=== PATIENT | male | born 1940 | race Caucasian/White ===

== ENCOUNTER 2022-03-06 11:28 | Inpatient (IN) ==
[2022-03-06] MEDS ORDERED: methylPREDNISolone SOD SUC 125 MG/2 ML VIAL IV STA (13:47)
[2022-03-06] MEDS ORDERED: ALBUTEROL NEB SOLN 5 MG/ML 20 ML/BOTTLE CONT NEB SCH (14:00)
[2022-03-06 14:20] LABS: Arterial Base Excess iSTAT -5 MMOL/L (-2.5-2.5); Arterial Bicarbonate iSTAT 21.1 MMOL/L (20-26); Arterial O2 Saturation iSTAT 100 % (95-100); Arterial PCO2 iSTAT 44 MM HG (35-48); Arterial PO2 iSTAT 242 MM HG (80-95); Arterial Total CO2 iSTAT 22 MMO/L (23-27); Arterial pH iSTAT 7.293 (7.35-7.45)
[2022-03-06 14:35] LABS: Basophils # 0.1 10*3/uL (0.0-0.2); Basophils % 0.4 % (0.0-0.8); Eosinophils % 0.2 % (0.00-10.9); Hematocrit 42.5 VOL% (42.0-52.0); Hemoglobin 12.8 GM/DL (14.0-18.0); Immature Granulocytes % 0.4 %; Immature Granulocytes Absolute 0.05 #; Lymphocytes % 15.8 % (21.2-54.2); Mean Corpuscular HGB Conc 30.1 GM/DL (32-36); Mean Corpuscular Volume 104.4 FL (87-102); Mean Platelet Volume 10.1 FL (9.6-12.0); Monocytes # 0.8 10*3/uL (0.11-0.8); Monocytes % 6.3 % (1.7-12.7); Neutrophils % 76.9 % (38.7-73.9); Platelet Count 244 T/CUMM (130-400); Red Blood Count 4.07 MC/CUMM (3.8-5.5); Red Cell Distribution Width 15.9 % (9.3-17.3); White Blood Count 12.9 T/CUMM (4-12)
[2022-03-06 14:39] LABS: Bilirubin,Total 0.5 MG/DL (0.20-1.00); Calcium 8.9 MG/DL (8.5-10.1); Osmolality,Calculated 309.4 MOS/KG (273-304); Total Protein 6.2 G/DL (6.4-8.2)
[2022-03-06 14:43] LABS: Bilirubin,Urine Negative (Negative); Blood, Urine Trace mg/dL (Negative); Glucose,Urine (UA) Negative (Negative); Ketones,Urine Negative (Negative); Nitrite,Urine Negative (Negative); Protein,Urine 100 mg/dL (Negative); Urine Appearance Clear (Clear); Urine Color Yellow (Yellow); Urine Urobilinogen 0.2 eU/dL (<2.0)
[2022-03-06 14:51] LABS: Mucus,Urine Occasional /LPF (Occasional); RBC,Urine 2 /HPF (0-4)
[2022-03-06] MEDS ORDERED: ETOMIDATE 20 MG/10 ML VIAL IV ONE (14:57)
[2022-03-06] MEDS ORDERED: ROCURONIUM 100 MG/10 ML VIAL IV ONE (14:58)
[2022-03-06] MEDS ORDERED: ETOMIDATE 20 MG/10 ML VIAL IV STA (15:04)
[2022-03-06] MEDS ORDERED: ROCURONIUM 100 MG/10 ML VIAL IV STA (15:04)
[2022-03-06] MEDS ORDERED: ALBUTEROL 2.5 MG/3 ML NEB RESP TX PRN (15:09)
[2022-03-06] MEDS ORDERED: ONDANSETRON 4 MG/2 ML VIAL IV PRN (15:10)
[2022-03-06 15:43] LABS: INR 1.1; PT Patient Result 11.8 SECS (10.1-12.1); Partial Thromboplastin Time 28.9 SECS (23.7-32.9)
[2022-03-06] MEDS: PANTOPRAZOLE 40 MG VIAL IV SCH (16:12)
[2022-03-06] MEDS ORDERED: MIDAZOLAM 2 MG/2 ML VIAL ONE (18:14)
[2022-03-06] MEDS: ALBUTEROL/IPRATROPIUM 3 ML NEB RESP TX SCH (18:20)
[2022-03-06] MEDS: MEROPENEM 500 MG in SODIUM CHLORIDE 0.9% 100 ML IV SCH (20:41)
[2022-03-06] MEDS: methylPREDNISolone SOD SUC 40 MG/1 ML VIAL IV SCH (20:41)
[2022-03-06] MEDS: APIXABAN 5 MG TABLET PO SCH (20:41)
[2022-03-07] MEDS: ALBUTEROL/IPRATROPIUM 3 ML NEB RESP TX SCH ×4 (00:27→19:31)
[2022-03-07 03:47] LABS: Arterial Base Excess iSTAT -4 MMOL/L (-2.5-2.5); Arterial Bicarbonate iSTAT 19.8 MMOL/L (20-26); Arterial O2 Saturation iSTAT 100 % (95-100); Arterial PCO2 iSTAT 33 MM HG (35-48); Arterial PO2 iSTAT 171 MM HG (80-95); Arterial Total CO2 iSTAT 21 MMO/L (23-27); Arterial pH iSTAT 7.389 (7.35-7.45)
[2022-03-07] MEDS: MEROPENEM 500 MG in SODIUM CHLORIDE 0.9% 100 ML IV SCH ×3 (05:56→20:43)
[2022-03-07 06:25] LABS: Hematocrit 34.5 VOL% (42.0-52.0); Hemoglobin 10.8 GM/DL (14.0-18.0); Immature Granulocytes % 0.7 %; Immature Granulocytes Absolute 0.05 #; Lymphocytes # 0.4 10*3/uL (1.4-4.0); Lymphocytes % 5.2 % (21.2-54.2); Mean Corpuscular HGB Conc 31.3 GM/DL (32-36); Mean Corpuscular Volume 100.6 FL (87-102); Mean Platelet Volume 10.4 FL (9.6-12.0); Monocytes # 0.1 10*3/uL (0.11-0.8); Neutrophils % 92.1 % (38.7-73.9); Platelet Count 169 T/CUMM (130-400); Red Blood Count 3.43 MC/CUMM (3.8-5.5); Red Cell Distribution Width 15.7 % (9.3-17.3); White Blood Count 7.2 T/CUMM (4-12)
[2022-03-07 06:48] LABS: Lymphocytes 3 % (20-55); Platelet Estimate Adequate; Total Cells Counted 100
[2022-03-07 06:54] LABS: Alanine Aminotransferase 22 U/L (16-61); Albumin 2.2 G/DL (3.4-5.0); Alkaline Phosphatase 69 U/L (45-117); Aspartate Amino Transferase 26 U/L (0-37); Bilirubin,Total < 0.39 MG/DL (0.20-1.00); Blood Urea Nitrogen 63 MG/DL (7-18); Calcium 8.4 MG/DL (8.5-10.1); Carbon Dioxide 20 MMOL/L (21-32); Chloride 120 MMOL/L (98-107); Cholesterol 116 MG/DL (50-200); Glucose 152 MG/DL (74-106); HDL Cholesterol 64 MG/DL (40-60); Osmolality,Calculated 312.4 MOS/KG (273-304); Potassium 5.2 MMOL/L (3.5-5.1); Risk Ratio 1.81; Sodium 147 MMOL/L (136-145); Triglycerides 73 MG/DL (2-150); VLDL Cholesterol 14.6 MG/DL
[2022-03-07] MEDS: APIXABAN 5 MG TABLET PO SCH ×2 (09:30→20:33)
[2022-03-07] MEDS: methylPREDNISolone SOD SUC 40 MG/1 ML VIAL IV SCH ×2 (09:31→20:42)
[2022-03-07] MEDS: PANTOPRAZOLE 40 MG VIAL IV SCH (16:07)
[2022-03-08] MEDS: ALBUTEROL/IPRATROPIUM 3 ML NEB RESP TX SCH ×4 (00:46→19:05)
[2022-03-08 05:33] LABS: Arterial Base Excess iSTAT -2 MMOL/L (-2.5-2.5); Arterial Bicarbonate iSTAT 21.5 MMOL/L (20-26); Arterial O2 Saturation iSTAT 100 % (95-100); Arterial PCO2 iSTAT 33 MM HG (35-48); Arterial PO2 iSTAT 201 MM HG (80-95); Arterial Total CO2 iSTAT 23 MMO/L (23-27); Arterial pH iSTAT 7.419 (7.35-7.45)
[2022-03-08 05:36] LABS: Hematocrit 33.7 VOL% (42.0-52.0); Hemoglobin 10.6 GM/DL (14.0-18.0); Immature Granulocytes % 0.7 %; Immature Granulocytes Absolute 0.06 #; Lymphocytes # 0.2 10*3/uL (1.4-4.0); Lymphocytes % 2.6 % (21.2-54.2); Mean Corpuscular HGB Conc 31.5 GM/DL (32-36); Mean Platelet Volume 10.3 FL (9.6-12.0); Monocytes # 0.2 10*3/uL (0.11-0.8); Monocytes % 2.1 % (1.7-12.7); Neutrophils % 94.6 % (38.7-73.9); Platelet Count 172 T/CUMM (130-400); Red Blood Count 3.37 MC/CUMM (3.8-5.5); Red Cell Distribution Width 15.9 % (9.3-17.3); White Blood Count 9.2 T/CUMM (4-12)
[2022-03-08] MEDS: MEROPENEM 500 MG in SODIUM CHLORIDE 0.9% 100 ML IV SCH ×3 (05:37→20:26)
[2022-03-08 05:51] LABS: Calcium 8.8 MG/DL (8.5-10.1); Osmolality,Calculated 317.6 MOS/KG (273-304); Phosphorous 4.4 MG/DL (2.5-4.9); Potassium 4.8 MMOL/L (3.5-5.1)
[2022-03-08 06:05] LABS: Lymphocytes 3 % (20-55); Macrocytosis Slight; Total Cells Counted 100
[2022-03-08 06:06] LABS: Ovalocytes Slight; Target Cells Slight
[2022-03-08] MEDS: POTASSIUM CHLORIDE 20 MEQ TABLET PO SCH (08:16)
[2022-03-08] MEDS: SODIUM BICARBONATE 650 MG TABLET PO SCH ×3 (08:47→20:23)
[2022-03-08] MEDS: CARBIDOPA/LEVODOPA 25-100 MG TABLET PO SCH ×3 (08:47→20:22)
[2022-03-08] MEDS: FUROSEMIDE 40 MG TABLET PO SCH ×3 (08:47→20:22)
[2022-03-08] MEDS: APIXABAN 5 MG TABLET PO SCH ×2 (08:47→20:23)
[2022-03-08] MEDS: CHOLECALCIFEROL 5,000 UNIT TABLET PO SCH (08:48)
[2022-03-08] MEDS: methylPREDNISolone SOD SUC 40 MG/1 ML VIAL IV SCH ×2 (08:48→20:23)
[2022-03-08] MEDS: PANTOPRAZOLE 40 MG VIAL IV SCH (15:14)
[2022-03-09] MEDS: ALBUTEROL/IPRATROPIUM 3 ML NEB RESP TX SCH ×4 (00:02→19:14)
[2022-03-09 03:34] LABS: Hemoglobin 11.4 GM/DL (14.0-18.0); Immature Granulocytes Absolute 0.11 #; Lymphocytes # 0.2 10*3/uL (1.4-4.0); Lymphocytes % 2.2 % (21.2-54.2); Mean Corpuscular HGB Conc 31.7 GM/DL (32-36); Mean Corpuscular Volume 98.4 FL (87-102); Mean Platelet Volume 10.4 FL (9.6-12.0); Monocytes # 0.2 10*3/uL (0.11-0.8); Monocytes % 1.4 % (1.7-12.7); Neutrophils % 95.4 % (38.7-73.9); Platelet Count 188 T/CUMM (130-400); Red Blood Count 3.66 MC/CUMM (3.8-5.5); Red Cell Distribution Width 15.9 % (9.3-17.3); White Blood Count 10.7 T/CUMM (4-12)
[2022-03-09 03:42] LABS: Arterial Base Excess iSTAT 0 MMOL/L (-2.5-2.5); Arterial Bicarbonate iSTAT 23.3 MMOL/L (20-26); Arterial O2 Saturation iSTAT 97 % (95-100); Arterial PCO2 iSTAT 35 MM HG (35-48); Arterial PO2 iSTAT 91 MM HG (80-95); Arterial Total CO2 iSTAT 24 MMO/L (23-27); Arterial pH iSTAT 7.438 (7.35-7.45)
[2022-03-09 03:51] LABS: Calcium 8.7 MG/DL (8.5-10.1); Osmolality,Calculated 321.6 MOS/KG (273-304); Potassium 4.3 MMOL/L (3.5-5.1)
[2022-03-09 04:06] LABS: Lymphocytes 1 % (20-55); Total Cells Counted 100
[2022-03-09 04:07] LABS: Macrocytosis Slight; Platelet Estimate Adequate
[2022-03-09] MEDS: MEROPENEM 500 MG in SODIUM CHLORIDE 0.9% 100 ML IV SCH ×3 (05:02→20:09)
[2022-03-09] MEDS: APIXABAN 5 MG TABLET PO SCH ×2 (10:07→20:08)
[2022-03-09] MEDS: POTASSIUM CHLORIDE 20 MEQ TABLET PO SCH (10:07)
[2022-03-09] MEDS: methylPREDNISolone SOD SUC 40 MG/1 ML VIAL IV SCH ×2 (10:08→20:08)
[2022-03-09] MEDS: CHOLECALCIFEROL 5,000 UNIT TABLET PO SCH (10:08)
[2022-03-09] MEDS: SODIUM BICARBONATE 650 MG TABLET PO SCH ×3 (10:08→20:08)
[2022-03-09] MEDS: CARBIDOPA/LEVODOPA 25-100 MG TABLET PO SCH ×3 (10:08→20:08)
[2022-03-09] MEDS: FUROSEMIDE 40 MG TABLET PO SCH ×3 (10:08→20:08)
[2022-03-09] MEDS: PANTOPRAZOLE 40 MG VIAL IV SCH (18:21)
[2022-03-10] MEDS: ALBUTEROL/IPRATROPIUM 3 ML NEB RESP TX SCH ×4 (00:56→19:05)
[2022-03-10 03:22] LABS: Arterial Base Excess iSTAT 3 MMOL/L (-2.5-2.5); Arterial Bicarbonate iSTAT 27.4 MMOL/L (20-26); Arterial O2 Saturation iSTAT 99 % (95-100); Arterial PCO2 iSTAT 39 MM HG (35-48); Arterial PO2 iSTAT 111 MM HG (80-95); Arterial Total CO2 iSTAT 29 MMO/L (23-27); Arterial pH iSTAT 7.453 (7.35-7.45)
[2022-03-10 04:01] LABS: Hematocrit 37.3 VOL% (42.0-52.0); Hemoglobin 11.8 GM/DL (14.0-18.0); Immature Granulocytes % 1.1 %; Immature Granulocytes Absolute 0.12 #; Lymphocytes # 0.3 10*3/uL (1.4-4.0); Lymphocytes % 2.6 % (21.2-54.2); Mean Corpuscular HGB Conc 31.6 GM/DL (32-36); Mean Corpuscular Volume 99.2 FL (87-102); Mean Platelet Volume 10.5 FL (9.6-12.0); Monocytes # 0.2 10*3/uL (0.11-0.8); Neutrophils % 94.3 % (38.7-73.9); Platelet Count 174 T/CUMM (130-400); Red Blood Count 3.76 MC/CUMM (3.8-5.5); Red Cell Distribution Width 15.9 % (9.3-17.3); White Blood Count 10.5 T/CUMM (4-12)
[2022-03-10 04:17] LABS: Calcium 8.4 MG/DL (8.5-10.1); Osmolality,Calculated 330.1 MOS/KG (273-304); Potassium 4.9 MMOL/L (3.5-5.1)
[2022-03-10] MEDS: MEROPENEM 500 MG in SODIUM CHLORIDE 0.9% 100 ML IV SCH ×3 (04:18→20:28)
[2022-03-10 04:28] LABS: Lymphocytes 5 % (20-55); Platelet Estimate Adequate; Total Cells Counted 100
[2022-03-10] MEDS: APIXABAN 5 MG TABLET PO SCH ×2 (09:06→20:27)
[2022-03-10] MEDS: SODIUM BICARBONATE 650 MG TABLET PO SCH (09:06)
[2022-03-10] MEDS: POTASSIUM CHLORIDE 20 MEQ TABLET PO SCH (09:07)
[2022-03-10] MEDS: FUROSEMIDE 40 MG TABLET PO SCH (09:07)
[2022-03-10] MEDS: CHOLECALCIFEROL 5,000 UNIT TABLET PO SCH (09:07)
[2022-03-10] MEDS: CARBIDOPA/LEVODOPA 25-100 MG TABLET PO SCH ×3 (09:07→20:27)
[2022-03-10] MEDS: methylPREDNISolone SOD SUC 40 MG/1 ML VIAL IV SCH ×2 (09:08→20:27)
[2022-03-10] MEDS: PANTOPRAZOLE 40 MG VIAL IV SCH (15:52)
[2022-03-11] MEDS: ALBUTEROL/IPRATROPIUM 3 ML NEB RESP TX SCH ×4 (00:02→19:42)
[2022-03-11 03:28] LABS: Arterial Base Excess iSTAT 5 MMOL/L (-2.5-2.5); Arterial Bicarbonate iSTAT 29.1 MMOL/L (20-26); Arterial O2 Saturation iSTAT 69 % (95-100); Arterial PCO2 iSTAT 42 MM HG (35-48); Arterial PO2 iSTAT 35 MM HG (80-95); Arterial Total CO2 iSTAT 30 MMO/L (23-27); Arterial pH iSTAT 7.447 (7.35-7.45)
[2022-03-11 03:37] LABS: Basophils % 0.2 % (0.0-0.8); Hematocrit 39.7 VOL% (42.0-52.0); Hemoglobin 12.4 GM/DL (14.0-18.0); Immature Granulocytes % 1.3 %; Immature Granulocytes Absolute 0.15 #; Lymphocytes # 0.4 10*3/uL (1.4-4.0); Lymphocytes % 3.4 % (21.2-54.2); Mean Corpuscular HGB Conc 31.2 GM/DL (32-36); Mean Platelet Volume 10.6 FL (9.6-12.0); Monocytes # 0.3 10*3/uL (0.11-0.8); Monocytes % 2.3 % (1.7-12.7); Neutrophils % 92.8 % (38.7-73.9); Platelet Count 174 T/CUMM (130-400); Red Blood Count 3.97 MC/CUMM (3.8-5.5); Red Cell Distribution Width 15.7 % (9.3-17.3); White Blood Count 11.2 T/CUMM (4-12)
[2022-03-11 03:41] LABS: Arterial Base Excess iSTAT 4 MMOL/L (-2.5-2.5); Arterial Bicarbonate iSTAT 28.7 MMOL/L (20-26); Arterial O2 Saturation iSTAT 96 % (95-100); Arterial PCO2 iSTAT 41 MM HG (35-48); Arterial PO2 iSTAT 79 MM HG (80-95); Arterial Total CO2 iSTAT 30 MMO/L (23-27); Arterial pH iSTAT 7.451 (7.35-7.45)
[2022-03-11 03:56] LABS: Calcium 8.7 MG/DL (8.5-10.1); Osmolality,Calculated 328.4 MOS/KG (273-304)
[2022-03-11 04:10] LABS: Lymphocytes 4 % (20-55); Platelet Estimate Adequate; Total Cells Counted 100
[2022-03-11 04:12] LABS: Macrocytosis Slight; Tear Drop Cells Few
[2022-03-11] MEDS: MEROPENEM 500 MG in SODIUM CHLORIDE 0.9% 100 ML IV SCH ×3 (05:00→20:40)
[2022-03-11] MEDS: APIXABAN 5 MG TABLET PO SCH ×2 (08:30→20:40)
[2022-03-11] MEDS: CARBIDOPA/LEVODOPA 25-100 MG TABLET PO SCH ×3 (08:30→20:40)
[2022-03-11] MEDS: POTASSIUM CHLORIDE 20 MEQ TABLET PO SCH (08:30)
[2022-03-11] MEDS: methylPREDNISolone SOD SUC 40 MG/1 ML VIAL IV SCH ×2 (08:31→20:40)
[2022-03-11] MEDS: CHOLECALCIFEROL 5,000 UNIT TABLET PO SCH (08:31)
[2022-03-11] MEDS: PANTOPRAZOLE 40 MG VIAL IV SCH (15:46)
[2022-03-12] MEDS: ALBUTEROL/IPRATROPIUM 3 ML NEB RESP TX SCH ×3 (00:22→14:00)
[2022-03-12] MEDS: MEROPENEM 500 MG in SODIUM CHLORIDE 0.9% 100 ML IV SCH ×2 (04:13→13:30)
[2022-03-12 04:21] LABS: Arterial Base Excess iSTAT 1 MMOL/L (-2.5-2.5); Arterial O2 Saturation iSTAT 94 % (95-100); Arterial PCO2 iSTAT 38 MM HG (35-48); Arterial PO2 iSTAT 70 MM HG (80-95); Arterial Total CO2 iSTAT 26 MMO/L (23-27); Arterial pH iSTAT 7.424 (7.35-7.45)
[2022-03-12 05:49] LABS: Basophils % 0.1 % (0.0-0.8); Hematocrit 39.1 VOL% (42.0-52.0); Hemoglobin 12.4 GM/DL (14.0-18.0); Immature Granulocytes % 1.7 %; Immature Granulocytes Absolute 0.18 #; Lymphocytes # 0.6 10*3/uL (1.4-4.0); Lymphocytes % 5.2 % (21.2-54.2); Mean Corpuscular HGB Conc 31.7 GM/DL (32-36); Mean Corpuscular Volume 99.5 FL (87-102); Mean Platelet Volume 10.9 FL (9.6-12.0); Monocytes # 0.3 10*3/uL (0.11-0.8); Monocytes % 2.7 % (1.7-12.7); Neutrophils % 90.3 % (38.7-73.9); Platelet Count 165 T/CUMM (130-400); Red Blood Count 3.93 MC/CUMM (3.8-5.5); White Blood Count 10.6 T/CUMM (4-12)
[2022-03-12 06:11] LABS: Calcium 8.3 MG/DL (8.5-10.1); Osmolality,Calculated 321.6 MOS/KG (273-304); Potassium 4.4 MMOL/L (3.5-5.1)
[2022-03-12] MEDS: methylPREDNISolone SOD SUC 40 MG/1 ML VIAL IV SCH (09:33)
[2022-03-12] MEDS: POTASSIUM CHLORIDE 20 MEQ TABLET PO SCH (09:33)
[2022-03-12] MEDS: CHOLECALCIFEROL 5,000 UNIT TABLET PO SCH (09:33)
[2022-03-12] MEDS: APIXABAN 5 MG TABLET PO SCH (09:34)
[2022-03-12] MEDS: CARBIDOPA/LEVODOPA 25-100 MG TABLET PO SCH ×2 (09:34→15:57)
[2022-03-12] MEDS: FUROSEMIDE 40 MG TABLET PO SCH ×2 (10:19→15:57)
[2022-03-12] MEDS: PANTOPRAZOLE 40 MG VIAL IV SCH (15:57)
[2022-03-12 16:19] VITALS: BP 141/73
[2022-03-12] MEDS ORDERED: CEFUROXIME 250 MG TABLET PO SCH (17:00)
[2022-03-13] MEDS ORDERED: predniSONE 20 MG TABLET PO SCH (09:00)
[2022-03-13] MEDS ORDERED: methylPREDNISolone SOD SUC 40 MG/1 ML VIAL IV SCH (10:00)
== END 2022-03-12 16:31 | DRG 207 ==
LOC: N.ED 11:28 → N.EDINP 15:09 → SUATTDRO 15:09 → N.CC 17:23 → N.ICU 03-10 16:26 → N.3E 03-11 12:24
PROVIDERS: ADMIT Internal Medicine; ATTEND Internal Medicine